=== PATIENT | female | born 1950 | race Caucasian/White ===

== ENCOUNTER 2017-08-22 15:43 | Emergency (ER) | payer OTHER ==
[~2017-08-22] VITALS: Ht 154.9 cm; Wt 54.2 kg
[~2017-08-22 15:43] MED LIST: EFFEXOR100 MG PO; WELLBUTRIN100 M1 PO
[2017-08-22 17:40] LABS: HEMATOCRIT 39.5 % (36.0-46.0); MCH 33.3 PG (29.0-34.0); MCHC 35.7 G/DL (30.0-36.0); MCV 93.4 FL (83-99); MEAN PLAT.VOLUME 9.5 uM^3 (9.5-12.4); PLATELET COUNT 362 K/uL (156-360); RBC DIS.WIDTH-CV 11.1 % (11.8-14.6); RED BLOOD COUNT 4.23 M/uL (3.80-5.20); WHITE BLOOD COUNT 7.2 K/uL (4.1-10.2)
[2017-08-22 17:45] LABS: CHLORIDE 103 mEq/L (99-109); POTASSIUM 3.5 mEq/L (3.7-5.4); SODIUM 138 mEq/L (136-147)
[2017-08-22 17:47] LABS: GLUCOSE 82 mg/dL (70-99)
[2017-08-22 17:48] LABS: ANION GAP 17 MEQ/L (2-14)
[2017-08-22 17:51] LABS: GFR ESTIMATE (CALCULATED) > 59 mL/min/; UREA NITROGEN (BUN) 11 mg/dL (9-23)
[2017-08-22 18:24] LABS: AMPHETAMINE NEGATIVE (500 ng/mL); BENZODIAZEPINES NEGATIVE (150 ng/mL); COCAINE NEGATIVE (150 ng/mL); METHAMPHETAMINE NEGATIVE (500 ng/mL); OPIATES (MORPHINE) PRESUMPTIVE POSITIVE (100 ng/mL); PHENCYCLIDINE NEGATIVE (25 ng/mL); THC CANNABINOIDS NEGATIVE (50 ng/mL)
[2017-08-22 18:25] LABS: ADD MEDTOX COMMENT Y; BARBITURATES NEGATIVE (200 ng/mL); INTERNAL CONTROLS VALID? YES; METHADONE NEGATIVE (200 ng/mL); OXYCODONE PRESUMPTIVE POSITIVE (100 ng/mL); PROPOXYPHENE NEGATIVE (300 ng/mL); TRICYCLIC ANTIDEPRESSANTS NEGATIVE (300 ng/mL)
[2017-08-22 19:10] VITALS: BP 109/51
== END 2017-08-22 19:14 | disposition home or self-care (01) ==
LOC: EME 15:43
PROVIDERS: Emergency Medicine
DX: F11.23 Opioid dependence with withdrawal (principal); G89.29 Other chronic pain; F32.9 Major depressive disorder, single episode, unspecified; Z72.0 Tobacco use; Z88.1 Allergy status to other antibiotic agents
CPT/HCPCS: 80048; 84999; 85027; 99281; 99285; J2270; J2405; J7030

== ENCOUNTER 2017-10-26 10:37 | Day surgery (SDC) | payer OTHER ==
[~2017-10-26] VITALS: Ht 158.8 cm; Wt 52.2 kg
[~2017-10-26 10:37] MED LIST changes: +ADVIL,NUPRIN,M200 MG PO; +DESYREL100 MG PO; +EFFEXOR XR150 MG PO; -EFFEXOR100 MG PO; +MELATONIN10 M5 PO; +MIRALAX17 GM PO; +MORPHINE SULFAT15 MG PO; +MS CONTIN,ORAMO30 MG PO; +NATURAL LUTEIN20 MG PO; +VITAMIN A8000 UNIT PO; +VITAMIN D31000 UNI1 PO; +WELLBUTRIN XL300 MG PO; -WELLBUTRIN100 M1 PO
== END 2017-10-26 11:20 | disposition home or self-care (01) ==
LOC: PAIN 10:37 → SDC 11:15 → PAIN 11:20
DX: M53.3 Sacrococcygeal disorders, not elsewhere classified (principal); M46.1 Sacroiliitis, not elsewhere classified; M47.816 Spondylosis without myelopathy or radiculopathy, lumbar region; M51.36 Other intervertebral disc degeneration, lumbar region; G89.29 Other chronic pain; M96.1 Postlaminectomy syndrome, not elsewhere classified; Z87.891 Personal history of nicotine dependence
CPT/HCPCS: J1030; J1885; J2250; J3010; S0020